=== PATIENT | female | born 1935 | race Caucasian/White ===

== ENCOUNTER → 2017-08-15 | Outpatient (CLI) | payer OTHER | END | disposition home or self-care (01) | LOC: LAB EV 16:31 | DX: L03.119 Cellulitis of unspecified part of limb (principal) | CPT/HCPCS: 87070; 87205 ==

== ENCOUNTER → 2020-07-08 | Outpatient (CLI) | payer MEDICARE | END | disposition home or self-care (01) | LOC: LAB SHORT 08:51 → PLD 08:51 | DX: D36.10 Benign neoplasm of peripheral nerves and autonomic nervous system, unspecified (principal) | CPT/HCPCS: 88305 ==

== ENCOUNTER 2022-06-11 14:11 | Inpatient (IN) | payer MEDICARE ==
[~2022-06-11] VITALS: Ht 152.4 cm; Wt 62.7 kg
[2022-06-11 14:53] LABS: Hemoglobin 13.2 g/dL (11.5-16.0); Mean Corpuscular HGB 32.3 pg (26.0-34.0); Mean Corpuscular HGB Conc 33.8 g/dL (31.5-36.5); Mean Corpuscular Volume 95 fL (80-100); Mean Platelet Volume 9.6 fL (9.1-12.4); NRBC ABSOLUTE 0.04 K/mm3 (0.00-0.02); NRBC Auto 0.2 /100 WBC (0.0-0.2); Platelet Count 181 K/mm3 (150-400); RDW Coefficient Variation 14.6 % (11.7-14.2); RDW Standard Deviation 51.6 fL (35.1-46.3); Red Blood Cell Count 4.09 M/mm3 (3.80-5.20); White Blood Cell Count 16.84 K/mm3 (4.00-11.30)
[2022-06-11 15:10] LABS: Albumin/Globulin Ratio 1.1 (0.8-1.8); Bilirubin, Total 1.7 mg/dL (0.1-1.0); Calcium, Blood 8.5 mg/dL (8.5-10.1); Creatinine, Blood 1.76 mg/dL (0.40-1.00); Globulin, Blood 2.8 g/dL (2.2-4.0); Potassium, Blood 3.7 mmol/L (3.5-5.5); Total Protein, Blood 5.8 g/dL (6.4-8.2)
[2022-06-11 15:18] LABS: Influenza A, PCR NEGATIVE (NEGATIVE); Influenza B, PCR NEGATIVE (NEGATIVE); Resp Syncytial Virus, PCR NEGATIVE (NEGATIVE); SARS-Cov-2 (COVID-19) PCR, MMC NEGATIVE (NEGATIVE)
--- NOTE | 2022-06-11 16:10 | NUR ---
Pt. is in an ED auxillary hammond bed, and recognizes this speech and hearing director. Pt. is pleasant but is unsettled by the way she passed out at home. Listen with empathy and a calming presence. Pt. displays evidence of engagement and hope. Prayed with Pt. Pt. verbalized gratitude for the Spiritual Care visit, and requested that I contact her protestant. Communicated with protestant Care Dir. and Elders.
[2022-06-11 16:21] LABS: Source, Urine Straight Cath
[2022-06-11 16:31] LABS: Appearance, Urine Cloudy (Clear); Bilirubin, Urine Neg (Neg); Blood, Urine 5+ (Neg); Color, Urine Yellow (P-Yellow); Glucose Qualitative, Urine Neg (Neg); Ketones, Urine Neg (Neg); Leukocyte Esterase, Urine 2+ (Neg); Nitrite, Urine Neg (Neg); Protein, Urine 3+ (Neg); Specific Gravity, Urine 1.015 (1.003-1.022); Urobilinogen, Urine NORM (Normal)
[2022-06-11 16:39] LABS: BAND PERCENT MAN 35 % (0-8); BASOPHILS PERCENT MAN 0 % (0-2); EOSINOPHILS ABSOLUTE MAN 0.16 K/mm3 (0.00-0.68); EOSINOPHILS PERCENT MAN 1 % (0-6); LYMPHOCYTES ABSOLUTE MAN 0.33 K/mm3 (0.84-5.20); LYMPHOCYTES PERCENT MAN 2 % (21-46); METAMYELOCYTE ABSOLUTE MAN 1.51 K/mm3 (0.00-0.00); METAMYELOCYTE PERCENT MAN 9 % (0-0); MONOCYTES PERCENT MAN 0 % (4-13); MYELOCYTE ABSOLUTE MAN 1.17 K/mm3 (0.00-0.00); MYELOCYTE PERCENT MAN 7 % (0-0); NEUTROPHILS ABSOLUTE MAN 13.64 K/mm3 (1.96-9.15); SEG NEUTROPHILS PERCENT MAN 46 % (41-73); TOTAL CELLS COUNTED 100
[2022-06-11 17:31] LABS: Amorphous Light (0-Heavy); Bacteria Many /hpf; Red Blood Cells, Urine TNTC /hpf (0-2); Renal Epithelial Rare /hpf (0-Rare); Squamous Epithelial Cells Rare /hpf (Few)
[2022-06-11 17:32] LABS: Mucus Light (0-Heavy)
--- NOTE | 2022-06-11 23:20 | NUR ---
RECEIVED REPORT FROM ED NURSE ISAAC. PT BEING ADMITTED FOR UROSEPSIS AND ON LEVOPHED FOR LOW MAP'S. LEVOPHED IS AT 5MCG AND MAP>65. SHE'S A&OX4, STANDBY ASSIST TO BSC, ON RA, MONITOR SHOWS HER HEART RHYTHM IS SINUS TACH. IV FLUIDS, LABS, CHEST X-RAY AND ULTRASOUND OF HER KIDNEYS DONE. PER ED RN THE PT HAD ASKED FOR SOME WATER AND RECEIEVED SOME FROM THE [place] TECH AND ASPIRATED. PT IS NOW COUGHING AND O2 REQUIREMENTS HAVE INCREASED.
[2022-06-12 05:06] LABS: Hematocrit 36.8 % (33.0-51.0); Hemoglobin 12.6 g/dL (11.5-16.0); Mean Corpuscular HGB 32.3 pg (26.0-34.0); Mean Corpuscular HGB Conc 34.2 g/dL (31.5-36.5); Mean Corpuscular Volume 94 fL (80-100); Mean Platelet Volume 9.7 fL (9.1-12.4); Platelet Count 127 K/mm3 (150-400); RDW Coefficient Variation 14.8 % (11.7-14.2); RDW Standard Deviation 51.8 fL (35.1-46.3); White Blood Cell Count 23.85 K/mm3 (4.00-11.30)
[2022-06-12 05:25] LABS: Albumin, Blood 2.5 g/dL (3.4-5.0); Albumin/Globulin Ratio 0.9 (0.8-1.8); Bilirubin, Total 0.7 mg/dL (0.1-1.0); Bun/Creatinine Ratio 22.7 (12.0-20.0); Calcium, Blood 7.5 mg/dL (8.5-10.1); Creatinine, Blood 1.28 mg/dL (0.40-1.00); Globulin, Blood 2.9 g/dL (2.2-4.0); Potassium, Blood 3.7 mmol/L (3.5-5.5); Total Protein, Blood 5.4 g/dL (6.4-8.2)
[2022-06-12 06:27] LABS: BAND PERCENT MAN 25 % (0-8); BASOPHILS PERCENT MAN 0 % (0-2); EOSINOPHILS PERCENT MAN 0 % (0-6); LYMPHOCYTES ABSOLUTE MAN 0.23 K/mm3 (0.84-5.20); LYMPHOCYTES PERCENT MAN 1 % (21-46); METAMYELOCYTE ABSOLUTE MAN 2.62 K/mm3 (0.00-0.00); METAMYELOCYTE PERCENT MAN 11 % (0-0); MONOCYTES ABSOLUTE MAN 0.47 K/mm3 (0.16-1.47); MONOCYTES PERCENT MAN 2 % (4-13); MYELOCYTE PERCENT MAN 13 % (0-0); NEUTROPHILS ABSOLUTE MAN 17.41 K/mm3 (1.96-9.15); SEG NEUTROPHILS PERCENT MAN 48 % (41-73); TOTAL CELLS COUNTED 100
--- NOTE | 2022-06-12 06:28 | NUR ---
Shift summary: Neuro: A&Ox4. C/O dizziness upon standing, but no numbness or tingling noted. Generalized weakness to BLE. Cardiac: ST with HR in 100-120s. BP normotensive. Levophed drip off since midnight. IV fluids infusing at 100ml/hr. Pt spiked a temperature after aspiration episode in ED. T-max was 100.8 but decreased on it's own with cool room and no covers. Resp: After aspiration event last night pt is still c/o SOB and MELLO. She remains on 3L NC with O2 sats 93-95%. made aware, but ensured that she is getting the correct antibiotics to cover aspiration PNA. GI: Currently NPO. LBM 06/11 : Voids in toilet and has a brief on for any incontinence, which she had an episode in ED. IVs: Pt has a PIV in the RFA and a PG in the DINORA that's positional.
--- NOTE | 2022-06-12 18:25 | NUR ---
END OF SHIFT SUMMARY NEURO: ALERT AND ORIENTED X4. HEADACHE 10/11, RELIEVED WITH TYLENOL. RESP: 3L NC, LUNGS WITH CRACKLES IN BILAT BASES. SOB IMPROVING PER PT. GI: SPEECH THERAPIST COMPLETED SWALLOW EVAL TODAY. PT HAS REGULAR DIET ORDERED. APPETITE IMPROVING. NO NAUSEA/VOMITING. BS HYPOACTIVE. : VOIDS WITH 1 PERSON ASSIST TO BSC/BATHROOM. CLEAR YELLOW URINE. SKIN: INTACT, NO ISSUES. AFEBRILE. IV: POWERGLIDE LEFT UPPER ARM- POSTIONAL, SL. PIV RIGHT FOREARM-NS AT 75ML/HR. PSYCH: UPDATES VIA PHONE GIVEN TO SON DEV, ROOMATE PAUL X2, GRANDDAUGHTER EVA AND FRIEND SAQIB. FRIEND IN TO VISIT AT BEDSIDE. C/O PAIN TO LEFT OUTER THIGH, REQUESTING PAIN RELIEVING CREAM. NOTIFIED. ORDERS RECEIVED.
[2022-06-13 03:23] LABS: Hematocrit 31.9 % (33.0-51.0); Mean Corpuscular HGB 32.3 pg (26.0-34.0); Mean Corpuscular HGB Conc 34.5 g/dL (31.5-36.5); Mean Corpuscular Volume 94 fL (80-100); Mean Platelet Volume 10.1 fL (9.1-12.4); Platelet Count 93 K/mm3 (150-400); RDW Coefficient Variation 14.8 % (11.7-14.2); RDW Standard Deviation 51.3 fL (35.1-46.3); Red Blood Cell Count 3.41 M/mm3 (3.80-5.20); White Blood Cell Count 23.03 K/mm3 (4.00-11.30)
[2022-06-13 03:37] LABS: Albumin, Blood 2.3 g/dL (3.4-5.0); Anion Gap 9 mmol/L (6-16); Blood Urea Nitrogen 25 mg/dL (8-24); Bun/Creatinine Ratio 32.5 (12.0-20.0); CO2, Blood 22 mmol/L (21-32); Calcium, Blood 7.6 mg/dL (8.5-10.1); Chloride, Blood 115 mmol/L (98-108); Creatinine, Blood 0.77 mg/dL (0.40-1.00); Glomerular Filtration Rate 75 (60-); Glucose, Blood 97 mg/dL (70-99); Phosphorus, Blood 2.8 mg/dL (2.5-4.9); Potassium, Blood 2.9 mmol/L (3.5-5.5); Sodium, Blood 146 mmol/L (136-145)
--- NOTE | 2022-06-13 04:08 | NUR ---
PT ANXIOUS TONIGHT. PT FOCUSING ON L LEG PAIN. TRYING PRNS, HEAT, COLD, AND REPOSITIONING THROUGHOUT NIGHT TO COMFORT PT. DECREASING STIMULI IN ROOM. A/OX4. NOT SLEEPING WELL TONIGHT. VSS. NO CHANGES IN OTHER BODY SYSTEMS.
[2022-06-13 04:22] LABS: BAND PERCENT MAN 33 % (0-8); BASOPHILS PERCENT MAN 0 % (0-2); EOSINOPHILS PERCENT MAN 0 % (0-6); LYMPHOCYTES ABSOLUTE MAN 0.46 K/mm3 (0.84-5.20); LYMPHOCYTES PERCENT MAN 2 % (21-46); METAMYELOCYTE ABSOLUTE MAN 1.84 K/mm3 (0.00-0.00); METAMYELOCYTE PERCENT MAN 8 % (0-0); MONOCYTES ABSOLUTE MAN 0.46 K/mm3 (0.16-1.47); MONOCYTES PERCENT MAN 2 % (4-13); MYELOCYTE ABSOLUTE MAN 1.15 K/mm3 (0.00-0.00); MYELOCYTE PERCENT MAN 5 % (0-0); NEUTROPHILS ABSOLUTE MAN 19.11 K/mm3 (1.96-9.15); SEG NEUTROPHILS PERCENT MAN 50 % (41-73); TOTAL CELLS COUNTED 100
--- NOTE | 2022-06-13 16:51 | NUR ---
SHIFT SUMMARY PT REMAINS ALERT AND ORIENTED. BP STABLE. CARDIAC MONITORING HAS BEEN DISCONTINUED. O2 SATS REMAIN ABOVE 90% ON 2L NC. PT ABLE TO AMBULATE TO [facility] TO VOID WITH MINIMAL ASSISTANCE. PT IS SHORT OF BREATH AND TACHYPNEIC WITH ACTIVITY. PT REPORTS INCREASE IN APPETITE THIS SHIFT. COMPLAINTS OF PAIN TO LEFT HIP THIS AM, BUT HAS DENIED PAIN THIS EVENING. WILL CONTINUE TO MONITOR AND REPORT TO ONCOMING YANETH
--- NOTE | 2022-06-14 04:39 | NUR ---
PT WITHOUT ANY CHANGES AND SIGNIFICANT EVENTS OVERNIGHT. VSS. A/OX4. SLEEPING INTERMITTENTLY TONIGHT. DENIES PAIN. ON 2L VIA NC. DENIES SOB. PT ABLE TO WALK FROM BED TO TOILENT TO VOID.
[2022-06-14 04:45] LABS: Hemoglobin 10.6 g/dL (11.5-16.0); Mean Corpuscular HGB 32.2 pg (26.0-34.0); Mean Corpuscular HGB Conc 34.2 g/dL (31.5-36.5); Mean Corpuscular Volume 94 fL (80-100); Platelet Count 88 K/mm3 (150-400); RDW Coefficient Variation 15.1 % (11.7-14.2); Red Blood Cell Count 3.29 M/mm3 (3.80-5.20); White Blood Cell Count 28.41 K/mm3 (4.00-11.30)
[2022-06-14 05:24] LABS: Albumin, Blood 2.5 g/dL (3.4-5.0); Albumin/Globulin Ratio 0.7 (0.8-1.8); Bilirubin, Total 0.7 mg/dL (0.1-1.0); Bun/Creatinine Ratio 49.8 (12.0-20.0); Calcium, Blood 8.4 mg/dL (8.5-10.1); Creatinine, Blood 0.5 mg/dL (0.40-1.00); Globulin, Blood 3.4 g/dL (2.2-4.0); Potassium, Blood 3.6 mmol/L (3.5-5.5); Total Protein, Blood 5.9 g/dL (6.4-8.2)
[2022-06-14 05:57] LABS: BAND PERCENT MAN 9 % (0-8); BASOPHILS PERCENT MAN 0 % (0-2); EOSINOPHILS PERCENT MAN 0 % (0-6); LYMPHOCYTES PERCENT MAN 6 % (21-46); MONOCYTES ABSOLUTE MAN 0.28 K/mm3 (0.16-1.47); MONOCYTES PERCENT MAN 1 % (4-13); NEUTROPHILS ABSOLUTE MAN 26.42 K/mm3 (1.96-9.15); SEG NEUTROPHILS PERCENT MAN 84 % (41-73); TOTAL CELLS COUNTED 100
--- NOTE | 2022-06-14 08:19 | NUR ---
Am note Assumed care of patient at approx 0700. Pt alert, oriented x4; calm and cooperative with care. Pt resting in bed, up with sba to bathroom. Pt denies pain, chest pain/pressure, nausea, dizziness and numb/tingling. Pt reports sob with coughing and chest discomfort with coughing; spo2 >90% on 2l o2 via nc, titrated down to 1l o2 via nc. Abd soft, nontender with normoactive bt t/o. No edema noted. No tele, bp stable. Afebrile, other vss. No other acute chagnes noted. Will continues to monitor.
--- NOTE | 2022-06-14 16:24 | NUR ---
Shift Summar Titrated patient to room air, spo2 >90% breathing even and unlabored. Pt up with sba in room, up in chair for majority of shift. No other acute changes noted. Will continue to monitor until report given to oncoming rn.
--- NOTE | 2022-06-15 05:17 | NUR ---
SHIFT SUMMARY: PT IS ALERT AND ORIENTED. PT IS A STANDBY ASSIST TO THE BATHROOM. PT CALLS APPROPRIATELY. PT DENIES PAIN, NAUSEA, VOMITING, AND SOB. PT SLEPT MUCH OF THE NIGHT WHEN NOT DISTURBED. NO ACUTE CHANGES OR COMPLICATIONS THIS SHIFT. BED IN LOW POSITION, CALL LIGHT WITHIN REACH. WILL CONTINUE TO MONITOR.
[2022-06-15 07:20] LABS: BASOPHILS ABSOLUTE AUTO 0.03 K/mm3 (0.00-0.23); BASOPHILS PERCENT AUTO 0 % (0-2); EOSINOPHILS ABSOLUTE AUTO 0.12 K/mm3 (0.00-0.68); EOSINOPHILS PERCENT AUTO 1 % (0-6); Hematocrit 28.3 % (33.0-51.0); Hemoglobin 9.7 g/dL (11.5-16.0); IMMATURE GRAN ABSOLUTE AUTO 0.07 K/mm3 (0.00-0.10); IMMATURE GRAN PERCENT AUTO 1 % (0-1); LYMPHOCYTES ABSOLUTE AUTO 2.32 K/mm3 (0.84-5.20); LYMPHOCYTES PERCENT AUTO 17 % (21-46); MONOCYTES PERCENT AUTO 10 % (4-13); Mean Corpuscular HGB 31.7 pg (26.0-34.0); Mean Corpuscular HGB Conc 34.3 g/dL (31.5-36.5); Mean Corpuscular Volume 93 fL (80-100); NEUTROPHILS ABSOLUTE AUTO 9.68 K/mm3 (1.96-9.15); NEUTROPHILS PERCENT AUTO 72 % (41-73); Platelet Count 95 K/mm3 (150-400); RDW Standard Deviation 51.4 fL (35.1-46.3); Red Blood Cell Count 3.06 M/mm3 (3.80-5.20); White Blood Cell Count 13.52 K/mm3 (4.00-11.30)
[2022-06-15 07:45] LABS: Albumin, Blood 2.3 g/dL (3.4-5.0); Albumin/Globulin Ratio 0.7 (0.8-1.8); Bilirubin, Total 0.7 mg/dL (0.1-1.0); Bun/Creatinine Ratio 35.3 (12.0-20.0); Calcium, Blood 8.4 mg/dL (8.5-10.1); Creatinine, Blood 0.71 mg/dL (0.40-1.00); Globulin, Blood 3.1 g/dL (2.2-4.0); Potassium, Blood 3.6 mmol/L (3.5-5.5); Total Protein, Blood 5.4 g/dL (6.4-8.2)
--- NOTE | 2022-06-15 10:57 | NUR ---
Spiritual Care Visit. Pt. is awake in bed and welcomes my visit. Pt. displays evidence of excitement over the news of her improved blood count numbers and verbalizes that she expects to be discharged later today. Normalized the Pt. experience and established rapport. Pt. verbalized that the hospitalization has been used to mend broken family relationships. Prayed with Pt. Pt. verbalized gratitude for the spiritual care visit.
[2022-06-15] MEDS ORDERED: VISBIOME 112.51 EACH PO (11:43)
[2022-06-15] MEDS ORDERED: CEFP200 PO (11:44)
--- NOTE | 2022-06-15 12:55 | NUR ---
DISCHARGE SUMMARY PATIENT ALERT AND ORIENTED THROUGOUT AM. SBA TO SHOWER THIS AM. WBC TRENDING DOWN. VOIDING WELL. DENIES PAIN. ROOM AIR. DISCHARGE ORDERS GIVEN. DISCHARGE EDUCATION GIVEN ON NEW MEDS, ACTIVITY, AND FOLLOW UP APPTS. POWERGLIDE DC'D WNL. PATIENT TOLERATED WELL. PATIENT LEFT UNIT AT 1300 VIA WHEELCHAIR WITH FRIEND FOR HOME.
== END 2022-06-15 13:02 | disposition home or self-care (01) | DRG 871 ==
LOC: ER 14:11 → ERHOLD 19:47 → ICUE 19:47 → MEDS 06-14 21:00
PROVIDERS: Internal Medicine; Physician Assistant; Student in an Organized Health Care Education/Training Program; ADMIT Internal Medicine
PROC: 3E033XZ Introduction of Vasopressor into Peripheral Vein, Percutaneous Approach (ICD-10-PCS; principal; 2022-06-11)
PROC: 3E03329 Introduction of Other Anti-infective into Peripheral Vein, Percutaneous Approach (ICD-10-PCS; 2022-06-11)
DX: A41.50 Gram-negative sepsis, unspecified (principal); J12.9 Viral pneumonia, unspecified; J69.0 Pneumonitis due to inhalation of food and vomit; J96.01 Acute respiratory failure with hypoxia; R65.21 Severe sepsis with septic shock; N17.9 Acute kidney failure, unspecified; N39.0 Urinary tract infection, site not specified; Z66 Do not resuscitate; A41.51 Sepsis due to Escherichia coli [E. coli]; E87.6 Hypokalemia; R77.8 Other specified abnormalities of plasma proteins; R32 Unspecified urinary incontinence; Z20.822 Contact with and (suspected) exposure to COVID-19; W18.30XA Fall on same level, unspecified, initial encounter; Z79.899 Other long term (current) drug therapy; Z79.2 Long term (current) use of antibiotics
CPT/HCPCS: 0241U; 36415; 51701; 70450; 71045; 76770; 78580; 80053; 80069; 81001; 83605; 83690; 83735; 83880; 84484; 85025; 87040; 87077; 87086; 87186; 92610; 93005; 93010; 96365-59; 96366-59; 96367-59; 97110; 97162; 99285-25; A9270; A9540; J0696; J1644; J3370; J7030; J7060